=== PATIENT | male | born 1930 | race Caucasian/White ===

== ENCOUNTER 2020-11-08 18:10 | Emergency (ER) | payer OTHER, MEDICARE ==
[2020-11-08] MEDS ORDERED: SILVER NITRATE 1 APPL TOP ONE (19:35)
[2020-11-08] MEDS ORDERED: HYDROCODONE/APAP 5/325 MG TAB ONE (20:19)
--- NOTE | 2020-11-08 20:35 | ER ---
Nurse's Notes [facility] Name: Edu Tang Age: 89 yrs Sex: Male : 1930 Arrival Date: 11/08/2020 Time: 18:13 Bed 8 Private MD: Diagnosis: Encounter for change or removal of surgical wound dressing Presentation: 11/08 18:17 Chief complaint: Patient states: had basal cell carcinoma removed today from on top of em his head in [facility], started bleeding about 30 minutes ago, pt applied pressure to the bleed, no bleeding noted in triage. Coronavirus screen: Client denies travel out of the [place] in the last 14 days. Ebola Screen: Patient negative for fever greater than or equal to 101.5 degrees Fahrenheit, and additional compatible Ebola Virus Disease symptoms Patient denies exposure to infectious person. Patient denies travel to an Ebola-affected area in the 21 days before illness onset. No symptoms or risks identified at this time. Initial Sepsis Screen: Does the patient meet any 2 criteria? No. Patient's initial sepsis screen is negative. Does the patient have a suspected source of infection? No. Patient's initial sepsis screen is negative. Risk Assessment: Do you want to hurt yourself or someone else? Patient reports no desire to harm self or others. Onset of symptoms was November 08, 2020. 18:17 Method Of Arrival: Ambulatory em 18:17 Acuity: TYLOR 3 em Historical: - Allergies: 18:21 Tape; em - Home Meds: 18:21 levothyroxine oral 5 mcg [Active]; em - PMHx: 18:21 Hypothyroidism; em 18:21 Cataracts; em - Immunization history:: Adult Immunizations up to date. - Social history:: Smoking status: Patient denies any tobacco usage or history of. Screenin:35 Abuse screen: Denies threats or abuse. Denies injuries from another. Nutritional sv screening: No deficits noted. Tuberculosis screening: No symptoms or risk factors identified. Fall Risk None identified. Assessment: 18:35 General: Appears in no apparent distress. comfortable, well groomed, well developed, sv Behavior is calm, cooperative, appropriate for age. Pain: Denies pain. Neuro: Level of Consciousness is awake, alert, obeys commands, Oriented to person, place, time, situation, Moves all extremities. Full function Gait is steady. Respiratory: Airway is patent Respiratory effort is even, unlabored, Respiratory pattern is regular, symmetrical. Derm: Skin is normal, Pt has been applying pressure with a dressing from home for about 45 mins per spouse. Musculoskeletal: Range of motion: intact in all extremities. 18:36 Reassessment: I saturated the dressing from home with NS and placed a saturated 4x4 on sv top as well per Rosemarie COTTRELL. 19:10 Reassessment: Patient appears in no apparent distress at this time. Patient and/or family updated on plan of care and expected duration. Pain level reassessed. Patient is alert, oriented x 3, equal unlabored respirations, skin warm/dry/pink. 19:20 Reassessment: Provider at bedside administereing Silver Nitrate application to bleeding wh site. 20:30 Reassessment: Patient appears in no apparent distress at this time. Patient and/or wh family updated on plan of care and expected duration. Pain level reassessed. Patient is alert, oriented x 3, equal unlabored respirations, skin warm/dry/pink. Vital Signs: 18:17 BP 172 / 71; Pulse 64; Resp 16; Temp 98.0; Pulse Ox 99% on R/A; Weight 74.84 kg; Height em 5 ft. 10 in. (177.80 cm); Pain 0/10; 19:30 BP 141 / 56; Pulse 62; Resp 18; Pulse Ox 99% on R/A; wh 20:30 BP 157 / 57; Pulse 64; Resp 18; Pulse Ox 99% on R/A; wh 18:17 Body Mass Index 23.67 (74.84 kg, 177.80 cm) em ED Course: 18:13 Patient arrived in ED. mr 18:20 Triage completed. em 18:21 Arm band placed on. em 18:23 Rosemarie Armas, ANDERSON is PHCP. kb 18:23 Mickey Nicolas MD is Attending Physician. kb 18:35 Patient has correct armband on for positive identification. Bed in low position. Call sv light in reach. Adult w/ patient. Door closed. Head of bed lowered. 18:52 Rubi Bennett, RN is Primary Nurse. sv 19:02 Report given to Jenny AGUAYO and Ahsan AGUAYO. sv 19:03 Primary Nurse role handed off by Rubi Bennett RN sv 20:42 Jenny Gill, RN is Primary Nurse. 20:43 No provider procedures requiring assistance completed. Patient did not have IV access during this emergency room visit. Administered Medications: 20:03 Drug: [place] (HYDROcodone-acetaminophen) 5 mg-325 mg 1 tabs Route: PO; 20:43 Follow up: Response: No adverse reaction; Pain is decreased; RASS: Alert and Calm (0) Outcome: 20:35 Discharge ordered by . kb 20:43 Discharged to home ambulatory, with family. 20:43 Condition: stable 20:43 Discharge instructions given to patient, family, Instructed on discharge instructions, follow up and referral plans. wound care, Demonstrated understanding of instructions, follow-up care, wound care, POC 20:43 Patient left the ED. Signatures: Rosemarie Armas, MASTER AT AR[employer]-C MASTER AT AR[employer]-Ckb Rubi Bennett, Lisseth Ramirez RN Trace Cedeno RN RN Jenny Gill RN RN
--- NOTE | 2020-11-08 20:36 | EDPHYS ---
Physician Documentation [facility] Name: Edu Tang Age: 89 yrs Sex: Male : 1930 Arrival Date: 11/08/2020 Time: 18:13 Bed 8 Private MD: Mickey Villagomez HPI: 11/09 00:23 This 89 yrs old Male presents to ER via Ambulatory with complaints of Post kb Surgical Bleeding. 00:23 Pt reports he had a basal cell carcinoma removed from scalp earlier today. States they kb cut a large area, then applied a pressure dressing and discharged him home. 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 Onset: The symptoms/episode began/occurred just prior to arrival. Severity of symptoms: At their worst the symptoms were moderate in the emergency department the symptoms are unchanged. The patient has not experienced similar symptoms in the past. The patient has been recently seen by a physician:. Historical: - Allergies: 11/08 18:21 Tape; em - Home Meds: 18:21 levothyroxine oral 5 mcg [Active]; em - PMHx: 18:21 Hypothyroidism; em 18:21 Cataracts; em - Immunization history:: Adult Immunizations up to date. - Social history:: Smoking status: Patient denies any tobacco usage or history of. ROS: 11/09 00:21 Constitutional: Negative for fever, chills, and weight loss, Cardiovascular: Negative kb for chest pain, palpitations, and edema, Respiratory: Negative for shortness of breath, cough, wheezing, and pleuritic chest pain, Abdomen/GI: Negative for abdominal pain, nausea, vomiting, diarrhea, and constipation, Neuro: Negative for headache, weakness, numbness, tingling, and seizure. Skin: Positive for of the top of head, open wound r/t basal cell carcinoma removal today. Exam: 00:22 Constitutional: This is a well developed, well nourished patient who is awake, alert, kb and in no acute distress. ENT: Moist Mucous membranes Respiratory: Respirations even and unlabored. No increased work of breathing, no retractions or nasal flaring. MS/ Extremity: Pulses equal, no cyanosis. Neurovascular intact. Full, normal range of motion. Neuro: Awake and alert, GCS 15, oriented to person, place, time, and situation. Moves all extremities. Normal gait. Psych: Awake, alert, with orientation to person, place and time. Behavior, mood, and affect are within normal limits. 00:22 Skin: open wound to top of head, moderate bleeding from two small areas. Vital Signs: 11/08 18:17 BP 172 / 71; Pulse 64; Resp 16; Temp 98.0; Pulse Ox 99% on R/A; Weight 74.84 kg; Height em 5 ft. 10 in. (177.80 cm); Pain 0/10; 19:30 BP 141 / 56; Pulse 62; Resp 18; Pulse Ox 99% on R/A; wh 20:30 BP 157 / 57; Pulse 64; Resp 18; Pulse Ox 99% on R/A; wh 18:17 Body Mass Index 23.67 (74.84 kg, 177.80 cm) em MDM: 18:24 Patient medically screened. kb 11/09 00:20 Data reviewed: vital signs, nurses notes. Data interpreted: Pulse oximetry: on room air kb is 99 %. Interpretation: normal. Counseling: I had a detailed discussion with the patient and/or guardian regarding: the historical points, exam findings, and any diagnostic results supporting the discharge/admit diagnosis, the need for outpatient follow up, a family practitioner, to return to the emergency department if symptoms worsen or persist or if there are any questions or concerns that arise at home. ED course: surgicel and pressure dressing applied to site, bleeding controlled and new dressing applied. Administered Medications: 11/08 20:03 Drug: [place] (HYDROcodone-acetaminophen) 5 mg-325 mg 1 tabs Route: PO; 20:43 Follow up: Response: No adverse reaction; Pain is decreased; RASS: Alert and Calm (0) Disposition: 11/09 07:53 Co-signature as Attending Physician, Mickey Nicolas MD I agree with the assessment and juvenal plan of care. Disposition: 11/08/20 20:35 Discharged to Home. Impression: Encounter for change or removal of surgical wound dressing. - Condition is Stable. - Discharge Instructions: How to Change Your Dressing, [id number]. - Medication Reconciliation Form, Thank You Letter, Antibiotic Education, Prescription Opioid Use form. - Follow up: Emergency Department; When: As needed; Reason: Worsening of condition. Follow up: Private Physician; When: 2 - 3 days; Reason: Recheck today's complaints, Continuance of care, Re-evaluation by your physician. Signatures: Rosemarie Armas, ANDERSON GONZALES-Mickey Todd MD MD cha Munoz, Edgar, RN Jenny Nguyen RN RN Corrections: (The following items were deleted from the chart) 11/08 20:43 20:35 11/08/2020 20:35 Discharged to Home. Impression: Encounter for change or removal wh of surgical wound dressing. Condition is Stable. Forms are Medication Reconciliation Form, Thank You Letter, Antibiotic Education, Prescription Opioid Use. Follow up: Emergency Department; When: As needed; Reason: Worsening of condition. Follow up: Private Physician; When: 2 - 3 days; Reason: Recheck today's complaints, Continuance of care, Re-evaluation by your physician. kb
[2020-11-08 21:13] VITALS: TEMP 98; O2SAT 99
[2020-11-08 21:16] VITALS: BP 157/57
== END 2020-11-08 20:43 | disposition home or self-care (01) ==
LOC: ER 18:10
DX: Z48.01 Encounter for change or removal of surgical wound dressing (principal); Z85.828 Personal history of other malignant neoplasm of skin; E03.9 Hypothyroidism, unspecified; Z91.048 Other nonmedicinal substance allergy status
CPT/HCPCS: 99283